=== PATIENT | female | born 1970 | race Caucasian/White ===

== ENCOUNTER → 2024-02-08 08:11 | Outpatient (REF) | payer BC, SELFPAY ==
[2024-02-08 10:09] LABS: % Basophils 0.3 % (0-2); % Immature Granulocytes 0.2 % (0-0.5); % Lymphocytes 32.7 % (20.5-51.1); % Monocytes 7.7 % (1.7-9.3); % Neutrophils 58.1 % (42.2-75.2); Absolute Eosinophils 0.1 10^3/uL (0-0.7); Absolute Lymphocytes 1.9 10^3/uL (1.2-3.4); Absolute Monocytes 0.5 10^3/uL (0.1-0.6); Absolute Neutrophils 3.4 10^3/uL (1.4-6.5); Hematocrit 42.5 % (37.0-47.0); Hemoglobin 14.5 g/dL (12.0-16.0); Mean Corp Hgb Conc. 34.1 g/dL (33.0-37.0); Mean Corpuscular Hgb 30.6 pg (27.0-31.0); Mean Corpuscular Volume 89.7 fL (81.0-99.0); Mean Platelet Volume 10.8 fL (7.4-10.4); Nucleated Red Blood Cells % 0 %; Platelet Count 251 10^3/uL (130-400); Red Blood Cell Count 4.74 10^6/uL (4.20-5.40); White Blood Cell Count 5.8 10^3/uL (4.8-10.8)
[2024-02-08 10:12] LABS: Urine Albumin Negative (Neg - Trace); Urine Bilirubin Negative (Negative); Urine Character Clear (Clear); Urine Color Yellow; Urine Glucose Negative (Negative); Urine Ketone Negative (Negative); Urine Leukocyte Negative (Negative); Urine Nitrite Negative (Negative); Urine Occult Blood 1+ (Negative); Urine Specific Gravity 1.025 (<1.030); Urine Urobilinogen Negative (Neg - 1+)
[2024-02-08 10:14] LABS: APTT 27.5 Sec (23.4-35.0); INR 0.98; PT 12.8 Sec (11.4-14.6)
[2024-02-08 10:21] LABS: ALT (SGPT) 32 U/L (0-35); AST (SGOT) 39 U/L (14-36); Albumin 4.4 g/dl (3.5-5.0); Alkaline Phosphatase 71 U/L (38-126); Blood Urea Nitrogen 25 mg/dl (7-17); Calcium 9.3 mg/dl (8.4-10.2); Carbon Dioxide 25 mmol/L (22-30); Chloride 105 mmol/L (98-107); Glucose 103 mg/dl (70-99); HDL Cholesterol 85 mg/dl; LDL Cholesterol, Calculated 166 mg/dl; Potassium 4.6 mmol/L (3.5-5.1); Sodium 139 mmol/L (135-145); Total Bilirubin 0.6 mg/dl (0.2-1.3); Total Cholesterol 267 mg/dl (50-199); Total Protein 7.1 g/dl (6.3-8.2); Triglyceride 83 mg/dl (10-149); Very Low Density Lipoprotein 16 mg/dl (0-30); eGFR > 60.00
[2024-02-08 10:33] LABS: Beta HCG Quantitative 3.47 mIU/ml
[2024-02-08 10:42] LABS: Urine Red Blood Cell 0-2 /HPF (0-2); Urine White Cell 0-2 /HPF (0-5)
[2024-02-08 10:47] LABS: Hepatitis B Surface Antigen Negative (Negative)
[2024-02-08 10:57] LABS: HIV Combo Negative (Negative)
[2024-02-08 11:05] LABS: Hepatitis C Antibody Negative (Negative)
== END ==
LOC: REG 08:11
PROVIDERS: FAMILY PHYSICIAN Family Medicine
DX: Z01.818 Encounter for other preprocedural examination (principal)
CPT/HCPCS: 36415; 80053; 80061; 81003; 81015; 84702; 85025; 85610; 85730; 86803; 87340; 87389

== ENCOUNTER → 2024-05-05 12:28 | Outpatient (REF) | payer BC, SELFPAY | LOC: WDC 12:28 | PROVIDERS: ATTENDING PHYSICIAN Obstetrics & Gynecology; FAMILY PHYSICIAN Family Medicine | DX: Z12.31 Encounter for screening mammogram for malignant neoplasm of breast (principal) | CPT/HCPCS: 77063; 77067 ==

== ENCOUNTER → 2024-05-11 08:50 | Outpatient (REF) | payer BC, SELFPAY | LOC: RAD 08:50 | PROVIDERS: ATTENDING PHYSICIAN Obstetrics & Gynecology; FAMILY PHYSICIAN Family Medicine | DX: D25.9 Leiomyoma of uterus, unspecified (principal) | CPT/HCPCS: 76830; 76856 ==

== ENCOUNTER → 2024-06-01 11:16 | Outpatient (REF) | payer BC, SELFPAY | LOC: CPAP 11:16 | PROVIDERS: ATTENDING PHYSICIAN Obstetrics & Gynecology | DX: N93.9 Abnormal uterine and vaginal bleeding, unspecified (principal) | CPT/HCPCS: 88305 ==

== ENCOUNTER 2024-07-06 06:25 | Day surgery (SDC) | payer BC, SELFPAY ==
[2024-07-03 08:24] VITALS: BMI 35.0
[2024-07-03 09:41] LABS: INR 0.94; PT 12.4 Sec (11.4-14.6)
[2024-07-03 09:42] LABS: APTT 28.3 Sec (23.4-35.0)
[2024-07-03 09:50] LABS: % Basophils 0.4 % (0-2); % Eosinophils 1.8 % (0-6); % Lymphocytes 46.4 % (20.5-51.1); % Monocytes 7.4 % (1.7-9.3); Absolute Eosinophils 0.1 10^3/uL (0-0.7); Absolute Lymphocytes 2.7 10^3/uL (1.2-3.4); Absolute Monocytes 0.4 10^3/uL (0.1-0.6); Absolute Neutrophils 2.5 10^3/uL (1.4-6.5); Hematocrit 40.3 % (37.0-47.0); Hemoglobin 13.6 g/dL (12.0-16.0); Mean Corp Hgb Conc. 33.7 g/dL (33.0-37.0); Mean Corpuscular Hgb 29.6 pg (27.0-31.0); Mean Corpuscular Volume 87.8 fL (81.0-99.0); Nucleated Red Blood Cells % 0 %; Platelet Count 251 10^3/uL (130-400); Red Blood Cell Count 4.59 10^6/uL (4.20-5.40); Red Cell Dist. Width 12.8 % (11.5-14.5); White Blood Cell Count 5.7 10^3/uL (4.8-10.8)
[2024-07-06 11:40] VITALS: BP 116/62
[2024-07-06 11:45] VITALS: BMI 34.2
[2024-07-06 11:58] VITALS: BMI 34.2
[2024-07-06 14:00] VITALS: BP 115/81; BP 116/62
[2024-07-06 14:15] VITALS: BP 122/74
[2024-07-06 14:30] VITALS: BP 131/75
[2024-07-06 14:50] VITALS: BP 146/84
[2024-07-06 15:08] VITALS: BP 137/87
== END 2024-07-06 15:18 | disposition home or self-care (01) ==
LOC: SDS 06:25
PROVIDERS: ATTENDING PHYSICIAN Obstetrics & Gynecology; FAMILY PHYSICIAN Family Medicine
DX: N95.0 Postmenopausal bleeding (principal)
CPT/HCPCS: 58558; 88305; 36415; 85025; 85610; 85730

== ENCOUNTER 2024-12-14 19:56 | Emergency (ER) | payer OTHER, SELFPAY ==
[2024-12-14 20:13] VITALS: BP 138/89
--- NOTE | 2024-12-14 21:06 | ED.GENMED ---
History of Present Illness
General
Chief Complaint: Skin Surface Trauma
Source: patient
Exam Limitations: none
Time Seen by Provider: 12/14/24 20:00
Nursing documentation reviewed up to this point in time: agreed with
History of Present Illness
History of Present Illness:
Patient is a a very pleasant 54-year-old woman presenting to the emergency department with injury to right fifth digit. 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
snapped back injuring her left fifth digit. She believes that it may have lacerated the skin. She noticed bruising and pain especially with range of motion prompting visit to the emergency department. She denies any numbness/tingling of affected
finger.
Patient is up-to-date with all vaccinations. No other injury sustained. No other concerns today.
Past History
Past History
ED Past Medical History: None
ED Past Surgical History: Gynecological (csection)
Social History
Tobacco: Non-smoker
Alcohol: Occasional
Drug: None
Living: with family
Employment: Employed
Review of Systems
Review of Systems
Allergies reviewed?: Yes
All Other Systems: ROS reviewed and negative except as documented in HPI and ROS
Phy Exam
Physical Exam
Physical Exam:
Vitals: Patient's vital signs are stable. Afebrile
General: Patient is well appearing, no acute distress
Skin: Warm and dry, no rashes or lesions
Head: Normocephalic, atraumatic
Throat: Protecting airway
Neck: Normal ROM, no cervical spine tenderness
Cardiac: Regular rate
Pulm: No apparent respiratory distress
Abdomen: Nondistended
Extremities: Mild contusion noted to right fifth digit at PIP joint with small blood blister. No laceration. Patient has excellent range of motion joints of that finger against resistance. Capillary refill WNL.
Neuro: Grossly intact
Psychiatric: Normal affect.
Course
Vital Signs
Initial and Last Documented VS:
Initial Vital Signs
Temp Pulse Resp BP Pulse Ox
98.8 F 64 18 138/89 99
12/14/24 20:13 12/14/24 20:13 12/14/24 20:13 12/14/24 20:13 12/14/24 20:13
Last Documented Vital Signs
Temp Pulse Resp BP Pulse Ox
98.8 F 64 18 138/89 99
12/14/24 20:13 12/14/24 20:13 12/14/24 20:13 12/14/24 20:13 12/14/24 20:13
MDM/Problems Addressed
Differential Diagnosis Includes:
Not limited to: Finger contusion, finger laceration, finger fracture, finger dislocation, etc.
MDM/Problems Addressed:
54-year-old female presenting with contusion to right fifth digit occurring at work tonight. Patient was injured when a blood pressure cuff became lodged in the stretcher it snapped back striking her finger. No other injury sustained. Patient
up-to-date on vaccinations. Patient mildly hypertensive, otherwise with stable vital signs. She is afebrile. Exam as above. There is a small contusion to right fifth digit at PIP joint with small blood blister. There is no laceration or break
to skin. Patient has excellent range of motion and affected finger with no evidence of dislocation. Low suspicion for fracture�did offer patient x-ray although she declined as she feels it is likely just a bruise. Advised ice, Tylenol/Motrin for
pain. Patient will follow-up with occupational health as this is a work-related injury.
Chronic conditions affecting care:
N/A
Acute Exacerbation and/or Progression of Chronic Illness:
N/A
*Pulse Oximetry
Patient hypoxic: no
*EKG
Interpreted by ED Provider?: NA
*Preschool Assistant Interpretation
Rate: Preschool Assistant- N/A
*Critical Care Note
Total Time (30-74mins, 75-104mins- exclusive of procedures): Not Applicable
ED Attending Note
-
Portions of this chart may have been created with voice recognition software.� Occasional wrong word or��sound alike� substitutions may have occurred due to the inherent limitations of voice recognition software.
Discharge Plan
Departure
Patient Disposition: Home (Routine Discharge)
Date of Disposition: 12/14/24
Time of Disposition: 20:11
Patient with high blood pressure during this ER visit?: No
Discharge Problem:
Contusion of finger of right hand
Instructions: Contusion
Prescriptions:
No Action
multivitamin Tablet
1 tab PO DAILY
Benefiber (guar gum) Packet
1 tbsp PO DAILY
omega 0-nbs-kzn-fish oil [Fish Oil] 60-90-500 mg Capsule
1 cap PO DAILY
turmeric
1 cap PO DAILY
Activity Restrictions/Additional Instructions:
Return to the emergency department with any intractable pain in affected finger, numbness/tingling, limited range of motion, worsening current symptoms, or any other concerns
- As discussed�there is no obvious laceration to your right fifth finger today. There appears to be a contusion with a small blood blister. Finger was cleaned with normal saline and a Band-Aid was applied emergency department.
- Continue to ice finger to reduce swelling. If symptoms persist/worsen�please return for an x-ray of your finger
- You should follow-up with occupational health for further evaluation/management as needed as this was a work-related injury.
Monitor your symptoms closely and return to the emergency department with any acute worsening/new symptoms or any other concerns
Interventions
Interventions:
*Nursing Disposition Last Done: 12/14/24 20:40
ED-Skin Assessment Last Done: 12/14/24 20:39
Discharge Date and Time
Discharge Date/Time: 12/14/24 20:41
Print Language: CONGOLESE
== END 2024-12-14 20:41 | disposition home or self-care (01) ==
LOC: EMR 19:56
PROVIDERS: EMERGENCY PHYSICIAN Student in an Organized Health Care Education/Training Program; FAMILY PHYSICIAN Family Medicine
DX: S60.221A Contusion of right hand, initial encounter (principal); W22.09XA Striking against other stationary object, initial encounter
CPT/HCPCS: 99282